=== PATIENT | female | born 1945 | race Caucasian/White ===

== ENCOUNTER 2019-07-21 08:26 | Outpatient (CLI) | payer MEDICARE, SELFPAY ==
--- NOTE | 2019-07-21 09:03 | NMCV_ITS ---
NM MIBI/MIBI Stress/Rest [id number] Palmira Knutson Age: 73 Gender: F : 1945 Exam Date: 07/21/2019 10:18 Ordering Phys: Manjula Cope MD ([email or web address]) Technologist: DAISY Arredondo Exam Location: [facility] Indications: chest pain STRESS TEST Please see separate stress test report in [facility] for full findings IMAGE PROTOCOL Rest/Stress 1 Lexiscan Day Radiopharmaceutical Dose (mCi) Administration Site Administered by Rest: Tc-99m 9.9 IV DAISY Arredondo Stress:Tc-99m 32.9 IV DAISY Arredondo Rest: 07/21/2019 60 Discovery 630 Stress: 07/21/2019 60 Discovery 630 0.4mg Lexiscan. Images obtained in supine and prone position. SPECT RESULTS Technical Quality: Good Raw Data Analysis: Normal, Breast attenuation, Soft tissue attenuation, 46D chest wall. Image Corrections: No attenuation or motion correction applied Summed Stress Score: 0 Summed Rest Score: 0 Summed Difference Score: 0 PERFUSION FINDINGS SPECT images demonstrate homogeneous tracer distribution throughout the myocardium. FUNCTIONAL RESULTS (calculated via Gated SPECT) Stress Image LV EF (%): 66 Stress EDV (mL):83 TID: 0.91 Stress ESV (mL):28 FUNCTIONAL FINDINGS: The left ventricle is normal in size. Transient Ischemia Dilatation of 0.91. There is normal left ventricular systolic function. The left ventricular ejection fraction is normal with a value of 66%. There is normal left ventricular wall thickening. Normal end-diastolic and end-systolic volumes. IMPRESSIONS 1. Myocardial perfusion imaging is normal. 2. Overall left ventricular systolic function is normal without regional wall motion abnormalities. 3. The left ventricular ejection fraction is normal with a value of 66%. 4. This study suggests a low likelihood of angiographically significant coronary artery disease. Manjula Cope MD (Electronically Signed) Final Date: 21 July 2019 15:49 S
--- NOTE | 2019-07-21 09:20 | ECG_ITS ---
NAME OF STUDY: LEXISCAN SESTAMIBI STRESS TEST INDICATION: Chest Pain PROCEDURE: At the baseline, the blood pressure was 214/87 mm Hg, oxygen saturation 95% with a heart rate of 95 bpm. The electrocardiogram showed sinus rhythm with frequent isolated PVCs. Possible old anteroseptal infarct. The Lexiscan was infused over a period of 20 seconds. A total of 0.4 milligrams of Lexiscan was infused. The stress phase was continued for a total of 5 minutes. Heart rate at the end of the stress phase was 94 bpm with a blood pressure 216/84 mmHg. The EKG at the peak infusion revealed. Sestamibi was injected 20 seconds after the Lexiscan infusion. Blood pressure at the end of the recovery phase was 218/79 mmHg with a heart rate of 91 beats per minute. CONCLUSION: 1. No significant EKG changes with the LexiScan infusion. 2. No LexiScan induced chest pain or cardiac arrhythmia. 3. Baseline hypertension with normal blood pressure and heart rate response. 4. Sestamibi/sestamibi perfusion scan pending; see separate report. Electronically Signed On 07-21-2019 15:45:33 [employer] PROJECT COORDINATION SPECIALIST by Manjula Cope M.D. [email or web address]
[2019-07-21 09:27] VITALS: BP 203/82; PULSE 100; BMI 41.0
--- NOTE | 2019-07-21 09:30 | SUR.PREOP ---
Patient reports no pain or discomfort prior to the start of the procedure.
[2019-07-21] MEDS: regadenoson 0.4 Mg/5 ml Syringe IVP (11:06)
== END 2019-07-21 08:27 | disposition home or self-care (01) ==
PROVIDERS: Family Provider Nurse Practitioner Family; PCP Nurse Practitioner Family; Visit Provider Internal Medicine Cardiovascular Disease
DX: R07.9 Chest pain, unspecified (principal)
CPT/HCPCS: 78452; 93017; A9500; J2785

== ENCOUNTER 2019-12-18 10:52 | Outpatient (CLI) | payer MEDICARE, SELFPAY ==
--- NOTE | 2019-12-18 13:55 | PFTS_ITS ---
Date of Study:12/18/19 Date of Dictation: MECHANICS: Forced vital capacity (FVC) is reduced. Forced expiratory volume in one second (FEV1) is reduced. FEV1/FVC is normal. FLOW VOLUME LOOP: Narrowed with mild scooping. LUNG VOLUMES: Not measured DIFFUSING CAPACITY FOR CARBON MONOXIDE: Normal. INTERPRETATION: Spirometry is consistent with mild restriction. There is no significant postbronchodilator response. Gas exchange (DLCO) is normal. MTDD
== END 2019-12-18 10:53 | disposition home or self-care (01) ==
LOC: RT 10:57
PROVIDERS: PCP Nurse Practitioner Family; Visit Provider Internal Medicine Cardiovascular Disease
DX: R06.00 Dyspnea, unspecified (principal)
CPT/HCPCS: 94060; 94729; J7611

== ENCOUNTER → 2020-04-17 11:57 | Outpatient (BNVA) | payer MEDICARE, SELFPAY | PROVIDERS: PCP Nurse Practitioner Family; Visit Provider Internal Medicine | DX: Z11.59 Encounter for screening for other viral diseases (principal) | CPT/HCPCS: 87635 ==

== ENCOUNTER 2020-04-22 07:23 | Day surgery (SDC) | payer MEDICARE, SELFPAY ==
[2020-04-18 07:43] VITALS: BMI 37.5
[2020-04-22 07:50] VITALS: BMI 37.5
[2020-04-22 08:03] VITALS: BP 124/60; PULSE 91; RESP 18; TEMP 36.9; O2SAT 96
[2020-04-22] MEDS: sodium chloride 0.9% 1,000 ML 30 ML IV (08:35)
--- NOTE | 2020-04-22 08:46 | ANES.PREANE2 ---
Pre-Anesthetic Assessment Pre-Anesthetic Assessment: Height/Weight: Height 1.7 m Weight 108.862 kg Temp Pulse Resp BP Pulse Ox 98.5 F 91 18 124/60 96 04/22/20 08:03 04/22/20 08:03 04/22/20 08:03 04/22/20 08:03 04/22/20 08:03 Preop Diagnosis: d Proposed Procedure: Operation Date: 04/22/20 09:00 Proposed Procedures p EGD(Not Applicable) - Jd Zavala MD s Colonoscopy(Not Applicable) - Jd Zavala MD Was Beta Lyubov taken within 24 hours: N/A Last intake: Intake Last Liquid Date 04/21/20 Last Liquid Time 22:00 Last Solid Date 04/20/20 Last Solid Time 22:00 Social: Social History: No alcohol and No tobacco Exam: Pre-Anes Outpt Exam: alert, oriented x 3, clear to auscultation bilaterally and regular rate & rhythm Airway: Submandibular: WNL Cervical ROM: WNL MP: 2 Pulmonary: Pulmonary: Sleep apnea CV/HEM: CV/HEM: HTN : : Chronic renal Insufficiency Hepatic: Hepatic: None reported GI: GI: GERD Metabolic: Metabolic: Morbid obesity and Thyroid Musc/skel: Musc/skel: OA/DJD Neuropsych: Neuropsych: Dementia and Depression Anesthetic Plan: ASA status: 3 Anesthesia: MAC Meds/Allergies Current Medications: Current Medications Generic Name Dose Route Start Last Admin Trade Name Freq PRN Reason Stop Dose Admin Sodium Chloride 1,000 mls @ 30 ml s/hr 04/22/20 07:45 04/22/20 08:35 Sodium Chloride 0.9% IV 04/23/20 07:44 30 mls/hr .Q24H RD Administration PFSH Anesthesia PFSH: Medical History (Updated 03/27/20 @ 09:39 by Jd Zavala MD) Anxiety Arthritis Bipolar disorder COPD (chronic obstructive pulmonary disease) Diabetes mellitus, type II Gastroesophageal reflux Hepatitis C Hyperlipidemia Hypertension Hypothyroidism Obesity Postmenopausal Sleep apnea Surgical History History of cholecystectomy Family History Brother Cancer Colon cancer Sister Cancer lung cancer Mother Stroke Father , in 70's Stroke Social History Smoking and tobacco status: current every day smoker cigarettes [ Other cigarette details: 4 cigs/week ] Alcohol intake: never History of recent travel: No Data Anesthesia Cardiac Studies: No Data to Display
--- NOTE | 2020-04-22 08:49 | W.PM.OPSUD ---
Surgery/Procedure H&P Update DATE OF PROCEDURE: April 22, 2020 DATE H&P PERFORMED: 03/27/20 PREOP DIAGNOSIS: d PLANNED PROCEDURE: Operation Date: 04/22/20 09:00 Proposed Procedures p EGD(Not Applicable) - Jd Zavala MD s Colonoscopy(Not Applicable) - Jd Zavala MD
[2020-04-22 09:40] VITALS: BP 130/47; PULSE 77; RESP 16; TEMP 36.7; O2SAT 93
--- NOTE | 2020-04-22 15:19 | ANE.PACU2 ---
Inpatient post-anesthesia follow up: Airway intact: Yes Vital signs: Temperature 98.1 F Pulse Rate 77 Respiratory Rate 16 Blood Pressure 130/47 Pulse Oximetry 93 Oxygen Delivery Me thod Nasal Cannula Oxygen Flow Rate 3 Fraction of Inspir ed Oxygen Hydration adequate: Yes Nausea and vomiting: No Pain level: 1 Mental status: Baseline
== END 2020-04-22 10:07 | disposition home or self-care (01) ==
PROVIDERS: PCP Nurse Practitioner Family; Visit Provider Internal Medicine
PROC: 0DJ08ZZ Inspection of Upper Intestinal Tract, Via Natural or Artificial Opening Endoscopic (ICD-10-PCS; CPT 43235; principal; 2020-04-22 09:00)
PROC: 0DJD8ZZ Inspection of Lower Intestinal Tract, Via Natural or Artificial Opening Endoscopic (ICD-10-PCS; CPT 45378; 2020-04-22 09:00)
DX: K92.1 Melena (principal); K59.00 Constipation, unspecified; R10.9 Unspecified abdominal pain; R14.0 Abdominal distension (gaseous); Z79.82 Long term (current) use of aspirin; M19.90 Unspecified osteoarthritis, unspecified site; J44.9 Chronic obstructive pulmonary disease, unspecified; B19.20 Unspecified viral hepatitis C without hepatic coma; E78.5 Hyperlipidemia, unspecified; I10 Essential (primary) hypertension; E03.9 Hypothyroidism, unspecified; E66.01 Morbid (severe) obesity due to excess calories; Z68.37 Body mass index [BMI] 37.0-37.9, adult; G47.30 Sleep apnea, unspecified; F17.210 Nicotine dependence, cigarettes, uncomplicated
CPT/HCPCS: 12345; 43235; 45378; J2704; J7030

== ENCOUNTER 2021-08-15 12:38 | Outpatient (CLI) | payer MEDICARE, SELFPAY ==
--- NOTE | 2021-08-15 13:30 | USCV_ITS ---
Palmira Knutson Age: 75 Gender: F : 1945 Exam Date: 08/15/2021 13:07 Ordering Phys: Manjula Cope MD ([email or web address]) Technologist: WING [place]am Location[place] [facility] [place]: Chronic shortness of breath BP: / HR: 68 Rhythm: Sinus Technical Quality: Suboptimal MEASUREMENTS (Male / Female) Normal Values 2D ECHO LV Diastolic Diameter PLAX 4.8 cm 4.2 - 5.9 / 3.9 - 5.3 cm LV Systolic Diameter PLAX 2.8 cm IVS Diastolic Thickness 1.3 cm 0.6 - 1.0 / 0.6 - 0.9 cm IVS Systolic Thickness 1.8 cm LVPW Diastolic Thickness 1.4 cm 0.6 - 1.0 / 0.6 - 0.9 cm LVPW Systolic Thickness 1.4 cm LVOT Diameter 1.8 cm LV Ejection Fraction 2D Teich 72.0 % LV Ejection Fraction MOD 2C 75.8 % LV Ejection Fraction 2C AL 79.2 % LA Diameter 4.2 cm LA Width 3.7 cm LA Height 6.1 cm RA Width 3.3 cm RA Height 5.1 cm Aorta at Sinotubular Diameter 3.0 cm M-MODE Aortic Annulus Diameter 3.1 cm LA Ao Ratio MM 1.4 MV E Point Septal Separation 0.4 cm DOPPLER AV Peak Velocity 191.0 cm/s LVOT Peak Velocity 137.0 cm/s AV Area Cont Eq vti 2.1 cm squared AV Area Cont Eq pk 1.9 cm squared MV Area PHT 3.5 cm squared Mitral E to A Ratio 0.9 MV E' Velocity 56.0 cm/s Mitral E to MV E' Ratio 14.4 Mitral E to LV E' Lateral Ratio 17.5 Mitral E to LV E' Septal Ratio 12.2 TR Peak Velocity 275.3 cm/s TR Peak Gradient 30.3 mmHg TV Peak E Velocity 50.0 cm/s Right Atrial Pressure 5.0 mmHg Pulmonary Artery Systolic Pressu 35.3 mmHg PV Peak Velocity 113.0 cm/s RV Acceleration Time 0.1 s RV Ejection Time 0.4 s RV AcT/ET 0.2 FINDINGS Left Ventricle Normal left ventricular size, systolic function and wall thickness. Left ventricular ejection fraction is estimated at 60 %. Although no diagnostic regional wall motion abnormalities could be identified, this possibility cannot be completely excluded. Normal diastolic function. Right Ventricle Normal right ventricular size and systolic function. Right ventricular systolic pressure 35.3 mmHg. Right Atrium Normal right atrial size. Left Atrium Mildly increased left atrial size. Aneurysmal interatrial septum. Mitral Valve Mild mitral annular calcification. No mitral valve stenosis. Trace mitral valve regurgitation. Aortic Valve Mildly thickened trileaflet aortic valve. No aortic valve stenosis. No aortic valve regurgitation. Tricuspid Valve Structurally normal tricuspid valve. Pulmonic Valve Pulmonic valve not well visualized. Trace pulmonary valve regurgitation. Pericardium No pericardial effusion. Aorta Normal size aortic root and proximal ascending aorta. CONCLUSIONS 1. Normal left ventricular size, systolic function and wall thickness. Left ventricular ejection fraction is estimated at 60 %. Although no diagnostic regional wall motion abnormalities could be identified, this possibility cannot be completely excluded. Normal diastolic function. 2. Normal right ventricular size and systolic function. 3. Pulmonary artery pressure estimated at 35 mm Hg. 4. No prior similar studies to compare. Manjula Cope MD (Electronically Signed) Final Date: 18 August 2021 21:04 S
== END 2021-08-15 12:39 | disposition home or self-care (01) ==
LOC: RAD 12:46
PROVIDERS: PCP Nurse Practitioner Family; Visit Provider Internal Medicine Cardiovascular Disease
DX: R06.02 Shortness of breath (principal)
CPT/HCPCS: 93306

== ENCOUNTER → 2021-12-11 09:51 | Outpatient (BNVA) | payer MEDICARE, SELFPAY | PROVIDERS: PCP Nurse Practitioner Family; Visit Provider Specialist | DX: M17.0 Bilateral primary osteoarthritis of knee (principal); Z71.89 Other specified counseling | CPT/HCPCS: 20610; J1100; J2795; J3301 ==

== ENCOUNTER → 2022-05-05 10:54 | Outpatient (BNVA) | payer MEDICARE, SELFPAY | PROVIDERS: PCP Nurse Practitioner Family; Visit Provider Internal Medicine Cardiovascular Disease | DX: R06.02 Shortness of breath (principal); R07.9 Chest pain, unspecified; I10 Essential (primary) hypertension; E78.5 Hyperlipidemia, unspecified; G47.30 Sleep apnea, unspecified; Z99.89 Dependence on other enabling machines and devices; J44.9 Chronic obstructive pulmonary disease, unspecified; F17.210 Nicotine dependence, cigarettes, uncomplicated | CPT/HCPCS: 99214 ==